=== PATIENT | female | born 1980 | race Two or more races ===

== ENCOUNTER → 2021-08-24 08:21 | Outpatient (CLI) | payer SELFPAY ==
--- NOTE | 2021-08-24 08:25 | US_ITS ---
FINAL REPORT CLINICAL HISTORY: ELEVATED LIVER ENZYMES FINDINGS: ULTRASOUND RIGHT UPPER QUADRANT Sonographic imaging of the right upper quadrant was obtained. The pancreas is partially obscured. There is increased echogenicity in the liver consistent with fatty infiltration. There is a small amount a of sludge in the gallbladder with no evidence of gallstones. There is no gallbladder wall thickening. There is no biliary ductal dilatation. The common duct is normal at 2 mm. Limited images of the right kidney are unremarkable. IMPRESSION: Fatty infiltration of the liver. Small amount of sludge in the gallbladder with no evidence of gallstones. Reviewed, Interpreted and Dictated by Hima Bean III, MD Transcribed by Rere Cabrera Authenticated by Hima Bean III, MD on 08/24/2021 11:03:30 AM [facility]
== END ==
PROVIDERS: PCP Nurse Practitioner Family; Visit Provider Nurse Practitioner Family
DX: R74.01 Elevation of levels of liver transaminase levels (principal)
CPT/HCPCS: 76705

== ENCOUNTER 2025-04-18 06:55 | Emergency (ER) | payer SELFPAY ==
[2025-04-18 07:30] VITALS: BP 126/81; PULSE 82; O2SAT 97
--- NOTE | 2025-04-18 07:32 | HMH.EDGENADL ---
Discharge Plan Disposition Patient Disposition: Home, Self-Care Prescriptions Prescriptions: New cetirizine 10 mg capsule 10 mg PO DAILY Qty: 30 0RF No Action triamcinolone acetonide 0.1 % ointment 1 applic TOPICAL QID PRN (Reason: rash) Qty: 30 0RF triamcinolone acetonide 0.1 % ointment 1 applic TOPICAL QID Qty: 30 0RF Referrals Follow up/Referrals: Kay Ding APRN [Primary Care Provider, Medical] - See instructions Activity Restrictions/Add. Instructions Additional Instructions/Restrictions: Please make sure you follow-up with an speech and hearing director to try to figure out exactly what is causing your allergic reactions. Return with any significant concerns such as shortness of breath difficulty swallowing etc. 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 She states that this morning she woke up with left arm swelling some itching and tingling also some swelling in her upper lip. Denies any neurovascular complaints. Denies any chest pain or shortness of breath. She states this happened about a week ago and she thought of that was from an allergy but has never been formally diagnosed with any allergies. Related Data Previous Rx's ?Medication ?Instructions ?Recorded triamcinolone acetonide 0.1 % 1 applic topical QID #30 grams 04/09/19 topical ointment triamcinolone acetonide 0.1 % 1 applic topical QID PRN rash #30 04/09/19 topical ointment grams cetirizine 10 mg capsule 10 mg PO DAILY #30 caps 04/18/25 Allergies Allergy/AdvReac Type Severity Reaction Status Date / Time No Known Allergies Allergy Verified 04/09/19 18:45 [facility] Disclaimer: The information contained in this section may have been updated after the patient was seen, as this information can be updated by other users. Social History Smoking Status: Never smoker alcohol intake: never substance use type: denies use current occupational status: unemployed Travel in the last 8 weeks?: None Have you lived/traveled outside [place] in past 30 days?: No Contact w/someone who lives/traveled outside US past 30 days?: No Exposure to someone with infectious disease in past 14 days?: No Do you have a fever (greater than 100.4 F or 38 C)?: No Have you tested positive for COVID-19?: No Exposed to someone with COVID-19 in past 14 days?: No Do you have a sore throat?: No Do you have a cough?: No Do you have any weakness?: No Do you have any diarrhea?: No Are you experiencing any unusual bleeding?: No Do you have any muscle aches/pain?: No Do you have any abdominal pain?: No Are you experiencing loss of taste or smell?: No Other Medical History Have you received the Pneumonia Vaccine: No ROS Obtained: Yes All systems reviewed & no additional complaints except as documented Physical Exam General General appearance: alert and in no apparent distress ENT ENT exam: Present other (Very mild upper lip swelling no other mucosal swelling no evidence of any angioedema within the mouth ) Respiratory Respiratory exam: Present normal lung sounds bilaterally Cardiovascular Cardiovascular exam: Present regular rate Extremities Exam Extremities exam: Present other (Left upper extremity there is a small urticarial rash on the volar aspect of her hand neurovascularly median ulnar radial and axillary nerve motor and sensory function is normal pulses are normal objectively I do not appreciate any significant swelling) Neurological Exam Neurological exam: Present alert and oriented X3 Medical Decision Making Medical Records Screening: Per USPSTF and CDC recommendations, given the prevalence of disease in our region, it is our hospital?s policy to screen for HIV and viral Hepatitis for all patients aged 18 and over and those with ongoing risk factors. Erick Inquiry Pt receiving controlled substance: No Vital Signs: 04/18/25 07:30 04/18/25 07:37 04/18/25 08:00 Temperature 97.6 F Temperature Source Oral Pulse Rate 82 66 Pulse Rate [Left Radial] 81 Respiratory Rate 16 Blood Pressure 126/81 123/67 Blood Pressure [Right Arm] 161/80 H Blood Pressure Mean [Right Arm] 107 02 Sat by Pulse Oximetry 97 98 99 Oxygen Delivery Method Room Air Room Air Lab Data Lab results reviewed: Yes I reviewed the patient's lab results. Lab Results 04/18/25 07:46: WBC 7.7, RBC 4.38, Hgb 13.3, Hct 39.0, MCV 89.0, MCH 30.4, MCHC 34.1, RDW 11.9, Plt Count 240, MPV 10.2, Neut % (Auto) 48.7, Lymph % (Auto) 44.0, Jennings % (Auto) 5.9, Eos % (Auto) 0.7, Baso % (Auto) 0.4, Neut # (Auto) 3.8, Lymph # (Auto) 3.4, Jennings # (Auto) 0.5, Eos # (Auto) 0.1, Baso # (Auto) 0.0, Sodium 137, Potassium 3.8, Chloride 109 H, Carbon Dioxide 18 L, Anion Gap 13.8, BUN 15, Creatinine 0.60, Estimated Creat Clear 157, Estimated GFR 108, Est GFR ( Amer) 131, Glucose 129 H, Calcium 8.9, Total Bilirubin 0.4, AST 61 H, ALT 107 H, Alkaline Phosphatase 55, Total Protein 7.2, Albumin 4.4, Globulin 2.8, Albumin/Globulin Ratio 1.6 04/18/25 07:46 04/18/25 07:46 Orders (Tests/Meds): ED MEDICATIONS Generic Name Dose Route Start Last Admin Trade Name Freq PRN Reason Stop Dose Admin Lactated Ringer's 1,000 mls @ 999 mls/hr 04/18/25 07:30 04/18/25 07:43 Lactated Ringer's 1000 Ml Bag IV 04/18/25 08:30 999 mls/hr .Q1H1M [facility] Administration Discontinued Medications Generic Name Dose Route Start Last Admin Trade Name Freq PRN Reason Stop Dose Admin Dexamethasone Sodium Phosphate 10 mg 04/18/25 07:17 04/18/25 07:44 Dexamethasone 4mg/Ml 1ml Vial IV 04/18/25 07:18 10 mg ONCE ONE Administration Diphenhydramine HCl 25 mg 04/18/25 07:17 04/18/25 07:43 Diphenhydramine 50mg/Ml Vial IV 04/18/25 07:18 25 mg ONCE ONE Administration ORDERS Category Date Time Status CBC w/Auto Diff [Complete Blood Count Auto Diff] Stat Lab 04/18/25 07:46 Completed CMP [Comprehensive Metabolic Panel] Stat Lab 04/18/25 07:46 Completed HIV Combo Stat Lab 04/18/25 07:46 Received Hepatitis C Ab Qual. W/ RFX Stat Lab 04/18/25 07:46 Received Medical Decision Narrative: 44-year-old with left upper extremity subjective swelling urticarial rash itching tingling and some swelling/tingling in the upper lip. I do not appreciate any obvious angioedema this appears to be consistent with an IgE mediated allergic reaction. Will give dexamethasone and Benadryl and reassess. I do not suspect that this is a neurovascular emergency specifically no evidence of stroke, DVT infection etc. Reassessment 8:26 AM patient feeling much better this was communicated through black powder glazing operator. Additionally patient has some mild transaminase elevations likely secondary to fatty liver but she needs to have this followed up upon. Unlikely that she has cirrhosis and that her itching today was a manifestation of that. This also was communicated upon discharge that she needs to follow-up with primary care doctor regarding this. Cetirizine sent to her pharmacy. No evidence of anaphylaxis. She has been advised to follow-up with an speech and hearing director as well for specific allergy testing Critical Care Critical Care Time Critical Care Time: No
[2025-04-18 07:37] VITALS: BP 161/80; PULSE 81; RESP 16; TEMP 36.4; O2SAT 98; BMI 30.7
[2025-04-18] MEDS: LACTATED RINGERS 1000ML 1,000 ML 999 ML IV (07:43)
[2025-04-18] MEDS: DEXAMETHASONE 4MG/ML 1ML VIAL 10 MG IV (07:44)
[2025-04-18 07:54] LABS: Hematocrit 39.0 % (37.0-47.0); Hemoglobin 13.3 g/dL (12.2-16.2); Immature Granulocytes % 0.3 %; Mean Corpuscular HGB Conc 34.1 g/dL (31.8-35.4); Mean Corpuscular Hemoglobin 30.4 pg (27.0-31.2); Mean Corpuscular Volume 89.0 fl (81-99); Nucleated Red Blood Cells % 0 %; Platelet Count 240 K/mm3 (142-424); Red Blood Count 4.38 M/mm3 (4.20-5.40); Red Cell Distribution Width-SD 39.0 fL; White Blood Count 7.7 K/mm3 (4.8-10.8)
[2025-04-18 08:00] VITALS: BP 123/67; PULSE 66; O2SAT 99
[2025-04-18 08:03] LABS: Alanine Aminotransferase 107 U/L (12-78); Albumin Level 4.4 g/dl (3.5-5.0); Albumin/Globulin Ratio 1.6 (1.1-1.8); Alkaline Phosphatase 55 U/L (38-126); Anion Gap 13.8 mEq/L (5-15); Aspartate Amino Transferase 61 U/L (14-36); Bilirubin,Total 0.4 mg/dl (0.2-1.3); Blood Urea Nitrogen 15 mg/dl (7-17); Calcium 8.9 mg/dl (8.4-10.2); Carbon Dioxide 18 mmol/L (22.0-30.0); Chloride 109 mmol/L (98-107); Creatinine Clearance Estimated 157 mL/min (50-200); Creatinine,Serum 0.60 mg/dl (0.52-1.04); Estimated Glomerular Filt Rate 108 ml/min (>60); GFR (African American) 131 ML/MIN (>60); Globulin 2.8 g/dL (1.3-3.2); Glucose 129 mg/dl (74-100); Potassium 3.8 mmoL/L (3.5-5.1); Sodium 137 mmol/L (136-145); Total Protein,Serum 7.2 g/dl (6.3-8.2)
[2025-04-18 08:43] VITALS: BP 129/72; PULSE 60; RESP 14; TEMP 36.6; O2SAT 99
[2025-04-18 09:38] LABS: Hepatitis C Ab Qual. W/ RFX NEGATIVE (Negative)
== END 2025-04-18 08:38 | disposition home or self-care (01) ==
PROVIDERS: Emergency Provider Student in an Organized Health Care Education/Training Program; PCP Nurse Practitioner Family
DX: L29.9 Pruritus, unspecified (principal); L50.0 Allergic urticaria; R74.01 Elevation of levels of liver transaminase levels; T78.40XA Allergy, unspecified, initial encounter
CPT/HCPCS: 80053; 85025; 86803; 87389; 96374; 96375; 99283; 99284; J1100; J1200; J7120